=== PATIENT | female | born 1950 | race Two or more races ===

== ENCOUNTER → 2021-09-10 | Emergency (ER) | payer OTHER ==
[~2021-09-10] VITALS: Ht 152.4 cm; Wt 55.8 kg
[~2021-09-10] MED LIST: ARICEPT5 MG PO; CARVEDILOL ER40 MG PO; DIALYVITE 800-1 EACH PO; EZALLOR SPRINKL40 MG PO; HYDRALAZINE HCL50 MG PO; ISOSORBIDE DINI30 MG PO; JANUVIA25 MG PO; SYNTHROID112 MCG PO; ZETIA10 MG PO
== END | disposition designated cancer center or children's hospital (05) ==
LOC: ER 13:34
DX: I21.4 Non-ST elevation (NSTEMI) myocardial infarction (principal); R53.81 Other malaise; Z88.2 Allergy status to sulfonamides; Z86.39 Personal history of other endocrine, nutritional and metabolic disease; I10 Essential (primary) hypertension

== ENCOUNTER 2023-03-23 10:12 | Outpatient (CLI) | payer OTHER | END 2023-03-23 10:21 | disposition home or self-care (01) | LOC: RAD 10:12 | DX: Z01.811 Encounter for preprocedural respiratory examination (principal); R06.02 Shortness of breath ==